=== PATIENT | female | born 1950 | race Caucasian/White ===

== ENCOUNTER 2021-04-05 17:36 | Emergency (ER) | payer OTHER, BC ==
[2021-04-05 18:21] VITALS: BP 144/79; PULSE 84; TEMP 98.5; BMI 19.5
== END 2021-04-05 19:33 | disposition home or self-care (01) ==
LOC: JCOVINFU 17:36
DX: Z20.822 Contact with and (suspected) exposure to COVID-19 (principal)
CPT/HCPCS: 99281-25